=== PATIENT | male | born 1960 | race Caucasian/White ===

== ENCOUNTER 2021-03-26 06:29 | Day surgery (SDC) | payer MEDICAID, OTHER ==
[2021-03-26] MEDS: Sodium Chloride 0.9% 1,000 ML IV SCH (07:00)
[2021-03-26] MEDS ORDERED: Midazolam 1 MG/ML 2 ML SDV ONE (07:23)
[2021-03-26] MEDS ORDERED: fentaNYL 100 MCG/2 ML SDV ONE (07:23)
[2021-03-26] MEDS ORDERED: Propofol 200 MG/20 ML SDV ONE (07:23)
[2021-03-26 09:14] VITALS: BP 119/71; PULSE 85
== END 2021-03-26 09:43 | disposition home or self-care (01) ==
LOC: JP.SDS 06:29
PROVIDERS: ATTEND Surgery
DX: Z12.11 Encounter for screening for malignant neoplasm of colon (principal); D12.2 Benign neoplasm of ascending colon; G47.33 Obstructive sleep apnea (adult) (pediatric); J44.9 Chronic obstructive pulmonary disease, unspecified; I10 Essential (primary) hypertension; E11.9 Type 2 diabetes mellitus without complications; E66.9 Obesity, unspecified; Z68.30 Body mass index [BMI] 30.0-30.9, adult
CPT/HCPCS: J2250; J2704; J3010; J7030